=== PATIENT | male | born 1990 | race Caucasian/White ===

== ENCOUNTER 2020-10-09 18:41 | Emergency (ER) | payer SELFPAY ==
[~2020-10-09] VITALS: Ht 177.8 cm; Wt 90.0 kg
[2020-10-09] MEDS ORDERED: DOXYCYC MONO100 M2 PO (18:58)
[2020-10-09 19:06] VITALS: BP 159/80
== END 2020-10-09 19:39 | disposition home or self-care (01) | DRG 728 ==
LOC: ED 18:41
DX: A64 Unspecified sexually transmitted disease (principal)
CPT/HCPCS: J0561

== ENCOUNTER 2020-10-24 15:19 | Emergency (ER) | payer SELFPAY ==
[~2020-10-24] VITALS: Ht 172.7 cm; Wt 78.6 kg
[~2020-10-24 15:19] MED LIST: DOXYCYC MONO100 M2 PO
[2020-10-24 16:20] LABS: URINE BILIRUBIN - DIPSTICK NEGATIVE (NEGATIVE); URINE BLOOD DIPSTICK NEGATIVE (NEGATIVE); URINE COLOR YELLOW; URINE GLUCOSE - DIPSTICK NEGATIVE (NEGATIVE); URINE KETONE NEGATIVE (NEGATIVE); URINE LEUK ESTERASE NEGATIVE (NEGATIVE); URINE PROTEIN - DIPSTICK NEGATIVE (NEG-TRACE); URINE SPECIFIC GRAVITY >=1.030; URINE UROBILINOGEN - DIPSTICK 0.2 E.U./dL (0.2)
[2020-10-24 16:22] LABS: URINE NITRITE - DIPSTICK NEGATIVE (Negative)
[2020-10-24] MEDS ORDERED: DOXYCYC MONO100 M2 PO (17:08)
[2020-10-24 17:30] VITALS: BP 129/74
== END 2020-10-24 17:30 | disposition home or self-care (01) | DRG 728 ==
LOC: ED 15:19
PROVIDERS: Family Medicine
DX: A56.2 Chlamydial infection of genitourinary tract, unspecified (principal); F17.210 Nicotine dependence, cigarettes, uncomplicated